=== PATIENT | female | born 1990 | race Caucasian/White ===

== ENCOUNTER 2024-01-23 05:21 | Observation (INO) | payer BC ==
[~2024-01-23] VITALS: Ht 170.2 cm; Wt 77.1 kg
[2024-01-23] VITALS (15 sets, daily range): BP systolic 132–155; BP diastolic 80–98
[2024-01-23] MEDS ORDERED: BUPR75 PO (05:37)
[2024-01-23] MEDS ORDERED: AMPDEX5 PO ×2 (05:37→10:32)
[2024-01-23 05:41] LABS: Source, Urine Clean Catch
[2024-01-23 05:47] LABS: BASOPHILS ABSOLUTE AUTO 0.05 K/mm3 (0.00-0.23); BASOPHILS PERCENT AUTO 1 % (0-2); EOSINOPHILS ABSOLUTE AUTO 0.31 K/mm3 (0.00-0.68); EOSINOPHILS PERCENT AUTO 4 % (0-6); Hematocrit 44.2 % (33.0-51.0); Hemoglobin 15.4 g/dL (11.5-16.0); IMMATURE GRAN ABSOLUTE AUTO 0.01 K/mm3 (0.00-0.10); IMMATURE GRAN PERCENT AUTO 0 % (0-1); LYMPHOCYTES ABSOLUTE AUTO 2.78 K/mm3 (0.84-5.20); LYMPHOCYTES PERCENT AUTO 31 % (21-46); MONOCYTES ABSOLUTE AUTO 0.99 K/mm3 (0.16-1.47); MONOCYTES PERCENT AUTO 11 % (4-13); Mean Corpuscular HGB 30.1 pg (26.0-34.0); Mean Corpuscular HGB Conc 34.8 g/dL (31.5-36.5); Mean Corpuscular Volume 87 fL (80-100); NEUTROPHILS ABSOLUTE AUTO 4.73 K/mm3 (1.96-9.15); NEUTROPHILS PERCENT AUTO 53 % (41-73); Platelet Count 303 K/mm3 (150-400); RDW Coefficient Variation 12.4 % (11.7-14.2); RDW Standard Deviation 39.2 fL (35.1-46.3); Red Blood Cell Count 5.11 M/mm3 (3.80-5.20); White Blood Cell Count 8.87 K/mm3 (4.00-11.30)
[2024-01-23 05:47] LABS: Bilirubin, Urine Neg (Neg); Blood, Urine 3+ (Neg); Glucose Qualitative, Urine Neg (Neg); Ketones, Urine Neg (Neg); Leukocyte Esterase, Urine Neg (Neg); Nitrite, Urine Neg (Neg); Protein, Urine Neg (Neg); Specific Gravity, Urine 1.025 (1.003-1.022); Urobilinogen, Urine NORM (Normal)
[2024-01-23 05:54] LABS: Appearance, Urine Clear (Clear); Color, Urine Yellow (P-Yellow)
[2024-01-23 05:57] LABS: White Blood Cells, Urine Not Seen /hpf (0-5)
[2024-01-23 05:58] LABS: Bacteria Rare /hpf; Squamous Epithelial Cells Few /hpf (Few)
[2024-01-23 06:06] LABS: Albumin, Blood 3.9 g/dL (3.4-5.0); Albumin/Globulin Ratio 1.1 (0.8-1.8); Bilirubin, Total 0.3 mg/dL (0.1-1.0); Bun/Creatinine Ratio 16.4 (12.0-20.0); Calcium, Blood 8.8 mg/dL (8.5-10.1); Creatinine, Blood 0.91 mg/dL (0.40-1.00); Globulin, Blood 3.6 g/dL (2.2-4.0); Potassium, Blood 3.6 mmol/L (3.5-5.5); Total Protein, Blood 7.5 g/dL (6.4-8.2)
[2024-01-23] MEDS ORDERED: Ketorolac Tromethamine 30mg Vial IV ONE (07:50)
[2024-01-23] MEDS ORDERED: Ondansetron HCl 2 MG / ML 2ML Vial IV ONE (07:50)
[2024-01-23] MEDS ORDERED: NS 1,000 ML IV SCH (07:50)
[2024-01-23] MEDS ORDERED: Ondansetron HCl 2 MG / ML 2ML Vial IV PRN ×2 (09:05→11:35)
[2024-01-23] MEDS ORDERED: HYDROcodone 5-APAP 325 TAB PO PRN (09:05)
[2024-01-23] MEDS ORDERED: Ondansetron 4 MG TAB PO PRN (09:05)
[2024-01-23] MEDS ORDERED: Lactated Ringer's 1,000 ML IV SCH ×3 (09:05→14:00)
[2024-01-23] MEDS ORDERED: FentaNYL Citrate 50 MCG/ML 2 ML Injection IV PRN ×3 (09:10→11:35)
[2024-01-23] MEDS ORDERED: CeFAZolin Sodium 2,000 MG in NS 100 ML IV ONE (09:25)
[2024-01-23] MEDS ORDERED: AMPDEX10CR PO (10:31)
--- NOTE | 2024-01-23 11:12 | NUR ---
ADMIT PT A+O X4 AND PLEASANT ON ARRIVAL. PT INDEPENDENT IN ROOM. REPORTS 1/10 PAIN AND DECLINES NEED FOR PAIN MEDICATION. DENIES N/V. NPO FOR PROCEDURE. IVF + ABX INFUSING PER ORDERS. DR. TAVAREZ AT BEDSIDE WITH PT. ORIENTED TO ROOM AND CALL LIGHT.
[2024-01-23] MEDS ORDERED: propofoL 20 ML IV ONE (11:24)
[2024-01-23] MEDS ORDERED: Rocuronium Bromide 10 MG/ML 5ML Injection IV ONE (11:25)
[2024-01-23] MEDS ORDERED: FentaNYL Citrate 50 MCG/ML 2 ML Injection ONE ×4 (11:25→14:14)
[2024-01-23] MEDS ORDERED: Lidocaine HCl 1% 5 ML SYR INJ ONE (11:30)
[2024-01-23] MEDS ORDERED: HYDROmorphone HCl/Pf 1MG SYR IV PRN (11:35)
[2024-01-23] MEDS ORDERED: Midazolam HCl 1MG / ML 2ML Vial IV ONE (11:35)
--- NOTE | 2024-01-23 12:03 | NUR ---
PT TO DAY SURGERY AT THIS TIME.
[2024-01-23] MEDS ORDERED: Bupivacaine 0.5% Inj 10 ML Vial ONE (12:15)
--- NOTE | 2024-01-23 12:21 | NUR ---
History, Chart, Medications and Allergies reviewed before start of procedure. Patient confirms NPO status and agrees with scheduled surgery. Pre-Op teaching done. Pt verbalizes understanding. Lungs clear T/O to Auscultation.
[2024-01-23] MEDS ORDERED: Dexamethasone Sod Phos 10 MG/ML 1ML VIAL ONE (12:50)
[2024-01-23] MEDS ORDERED: Ondansetron HCl 2 MG / ML 2ML Vial ONE (12:50)
[2024-01-23] MEDS ORDERED: Labetalol HCL 5 MG/ML 4ML Injection (Single Dose) ONE (13:21)
[2024-01-23] MEDS ORDERED: Sugammadex Sodium 200 MG/2ML SDV (100 MG/ML) ONE (13:23)
[2024-01-23] MEDS ORDERED: Ketorolac Tromethamine 30mg Vial ONE (13:47)
--- NOTE | 2024-01-23 15:43 | NUR ---
POST OP PT AWAKE AND ALERT UPON ARRIVAL TO UNIT. ABLE TO TRANSFER FROM GURNEY TO BED. PT REPORTS MILD NAUSEA, MEDICATED PER EMAR. PT SIPPING ON GINGERALE. REPORTS 3/10 ABD PAIN BUT DECLINES NEED FOR PAIN MEDICATIONS. POST OP VSS AND IN PROGRESS. IVF INFUSING PER ORDERS. LAP SITES WITH STERI STRIPS X4 TO ABD APPEAR CDI. CALL LIGHT WITHIN REACH.
[2024-01-23] MEDS ORDERED: Acetaminophen 325 MG TABLET PO PRN (16:45)
--- NOTE | 2024-01-23 17:16 | NUR ---
SHIFT SUMMARY S/P LAP MESHA. LAP SITES X4 TO ABD WITH STERI STRIPS REMAIN CDI. TYLENOL FOR PAIN MANAGEMENT. NAUSEA X1, BUT NO EMESIS. IVF INFUSING PER ORDERS. ABLE TO TOLERATE SIPS OF CLEARS. POST OP VSS. USES CALL LIGHT APPROPRIATELY.
[2024-01-23] MEDS ORDERED: Norco 5-325 Ta1 EACH PO (17:58)
--- NOTE | 2024-01-23 18:32 | NUR ---
DISCHARGE PT EDUCATED ON AND RECEIVED PRINTED DISCHARGE INSTRUCTIONS AND VERB AN UNDERSTANDING. IV DC'D. PT LEFT WITH HARD RX FOR NORCO. PT LEFT WITH ALL PERSONAL BELONGINGS AND FRIEND COMING TO TAKE PT HOME.
== END 2024-01-23 18:36 | disposition home or self-care (01) ==
LOC: ER 05:21 → SURS 05:22
PROVIDERS: Emergency Medicine; ADMIT Surgery
PROC: 0FT44ZZ Resection of Gallbladder, Percutaneous Endoscopic Approach (ICD-10-PCS; principal; 2024-01-23 12:00)
DX: K80.10 Calculus of gallbladder with chronic cholecystitis without obstruction (principal); R16.0 Hepatomegaly, not elsewhere classified; Z88.0 Allergy status to penicillin; Z79.899 Other long term (current) drug therapy
CPT/HCPCS: 76705; 80053; 81001; 81025; 83690; 85025; 88304; 96361; 96374; 96375; A9270; G0378; J0690; J1100; J1885; J2250; J2405; J2704; J3010; J7030; J7120